=== PATIENT | female | born 1990 | race Caucasian/White ===

== ENCOUNTER 2019-02-15 08:41 | Emergency (ER) | payer OTHER ==
[2019-02-15] MEDS ORDERED: IBUPROFEN 600 MG TAB PO STA (08:50)
--- NOTE | 2019-02-15 08:55 | ED ---
General Adult HPI - General Chief complaint: Chest Pain Stated complaint: Chest pain Time Seen by Provider: 02/15/19 08:41 Source: patient, RN notes reviewed Mode of arrival: EMS Limitations: no limitations - History of Present Illness Initial comments: This is a 28-year-old female presents emergency Department complaining of anterior chest wall pain. Patient states she woke up this morning and taking deep breath hurts her chest wall. Patient states pressing on it also hurts her chest wall. 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 Patient states she got there are week ago. Patient states she doesn't think she didn't think yesterday with the previous day that might of her chest wall but she woke up this morning at 7:00 and was very tender to touch and very painful when she moved or took a deep breath. Patient denies any shortness of breath. Patient denies any pressure on her chest. Patient states she doesn't move at all wrist no pain at all. Patient denies any recent fever chills or cough. Patient denies any abdominal pain. Denies any calf pain or swelling to the legs. - Related Data Home Medications Medication Instructions Recorded Confirmed Acetaminophen [Tylenol 8 Hour] 650 mg PO Q4H PRN 02/15/19 02/15/19 Chlorpheniramine Maleate 4 mg PO Q4H PRN 02/15/19 02/15/19 [Chlor-Trimeton] Ibuprofen [Motrin] 600 mg PO TID PRN 02/15/19 02/15/19 Mirtazapine [Remeron] 30 mg PO HS 02/15/19 02/15/19 Multivitamins, Thera [Multivitamin 1 tab PO DAILY 02/15/19 02/15/19 (formulary)] Omeprazole [PriLOSEC] 20 mg PO DAILY 02/15/19 02/15/19 Ondansetron HCl [Zofran Oral Soln] 4 mg IM Q6H PRN 02/15/19 02/15/19 Ondansetron HCl [Zofran] 8 mg PO Q6H PRN 02/15/19 02/15/19 PHENobarbital See Taper PO DIRECTED 02/15/19 02/15/19 SUMAtriptan SUCCINATE [Imitrex] 25 mg PO Q4H PRN 02/15/19 02/15/19 Sertraline [Zoloft] 200 mg PO DAILY 02/15/19 02/15/19 Thiamine [Vitamin B-1] 100 mg PO DAILY 02/15/19 02/15/19 Tigan 200mg Im 200 mg IM Q6H PRN 02/15/19 02/15/19 Tigan 300mg Supp 300 mg RECTAL Q6H PRN 02/15/19 02/15/19 Trimethobenzamide [Tigan] 300 mg PO Q6H PRN 02/15/19 02/15/19 Allergies Allergy/AdvReac Type Severity Reaction Status Date / Time ketorolac [From Toradol] Allergy Rash/Hives Verified 02/15/19 09:09 tramadol [From Ultram] Allergy Itching Verified 02/15/19 09:09 Review of Systems ROS Statement: Those systems with pertinent positive or pertinent negative responses have been documented in the HPI. ROS Other: All systems not noted in ROS Statement are negative. Past Medical History Additional Past Medical History / Comment(s): Endometriosis History of Any Multi-Drug Resistant Organisms: None Reported Past Psychological History: Anxiety, Depression, PTSD Smoking Status: Never smoker Past Alcohol Use History: None Reported General Exam - General Exam Comments Initial Comments: GENERAL: Patient is well-developed and well-nourished. Patient is nontoxic and well- hydrated and is in no acute distress. ENT: Neck is soft and supple. No significant lymphadenopathy is noted. Oropharynx is clear. Moist mucous membranes. Neck has full range of motion without eliciting any pain. EYES: The sclera were anicteric and conjunctiva were pink and moist. Extraocular movements were intact and pupils were equal round and reactive to light. Eyelids were unremarkable. PULMONARY: Unlabored respirations. Good breath sounds bilaterally. No audible rales rhonchi or wheezing was noted. CARDIOVASCULAR: There is a regular rate and rhythm without any murmurs gallops or rubs. Chest pain is reproducible with palpation on both sides of the sternum. ABDOMEN: Soft and nontender with normal bowel sounds. SKIN: Skin is clear with no lesions or rashes and otherwise unremarkable. NEUROLOGIC: Patient is alert and oriented x3. Cranial nerves II through XII are grossly intact. Motor and sensory are also intact. Normal speech, volume and content. Symmetrical smile. MUSCULOSKELETAL: Normal extremities with adequate strength and full range of motion. No lower extremity swelling or edema. No calf tenderness. LYMPHATICS: No significant lymphadenopathy is noted PSYCHIATRIC: Normal psychiatric evaluation. Limitations: no limitations Course Vital Signs 02/15/19 02/15/19 08:43 08:50 Temperature 98.1 F Pulse Rate 69 Pulse Rate [ 69 [employer] ] Respiratory 14 Rate Blood Pressure 119/64 O2 Sat by Pulse 97 Oximetry Medical Decision Making - Medical Decision Making EKG shows normal sinus rhythm at 66 bpm ME interval 132 QRS is 86 QT interval 414 QTC is 434. Patient's EKG shows no ST segment elevation or depression or T wave abnormalities are noted. Disposition Clinical Impression: Chest wall pain Disposition: HOME SELF-CARE Condition: Good Instructions (If sedation given, give patient instructions): Chest Wall Pain (ED) Is patient prescribed a controlled substance at d/c from ED?: No Referrals: Noé Wagner DO [Primary Care Provider] - 1-2 days Time of Disposition: 10:01
--- NOTE | 2019-02-15 09:11 | XR ---
EXAMINATION TYPE: XR chest 2V DATE OF EXAM: 02/15/2019 COMPARISON: NONE HISTORY: Chest pain for a few hours. Difficulty in breathing. TECHNIQUE: Frontal and lateral views of the chest are obtained. FINDINGS: There is no focal air space opacity, pleural effusion, or pneumothorax seen. The cardiac silhouette size is within normal limits. The osseous structures are intact. IMPRESSION: No acute cardiopulmonary process.
[2019-02-15 10:23] VITALS: BP 103/72; PULSE 67; RESP 13; TEMP 98.2
== END 2019-02-15 10:15 | disposition home or self-care (01) ==
LOC: EC 08:41
DX: R07.89 Other chest pain (principal); F10.10 Alcohol abuse, uncomplicated; F32.9 Major depressive disorder, single episode, unspecified; F41.9 Anxiety disorder, unspecified; F43.10 Post-traumatic stress disorder, unspecified; Z79.899 Other long term (current) drug therapy; Z88.5 Allergy status to narcotic agent; Z88.6 Allergy status to analgesic agent
CPT/HCPCS: 71046; 93005; 99285